=== PATIENT | male | born 1950 | race Caucasian/White ===

== ENCOUNTER 2018-04-05 11:04 | Inpatient (IN) | payer OTHER, MEDICAID ==
[~2018-04-05] VITALS: Ht 165.1 cm; Wt 47.8 kg
[2018-04-05 12:26] LABS: BASOPHIL % 0.5 % (0-2); PLATELET COUNT 187 x10^3mcL (130-400)
[2018-04-05 12:45] LABS: BILIRUBIN TOTAL 0.36 mg/dL (0.20-1.00); CALCIUM 8.5 mg/dL (8.5-10.1); CARBON DIOXIDE 28.2 mmol/L (21-32); POTASSIUM SERUM 3.7 mmol/L (3.5-5.1); TOTAL PROTEIN, SERUM 7.8 g/dL (6.4-8.2)
[2018-04-05 12:47] LABS: ALBUMIN 2.9 g/dL (3.4-5.0); CREATININE SERUM 6.5 mg/dL (0.7-1.3)
[2018-04-05] MEDS ORDERED: LISINOPRIL2.5 MG (14:12)
[2018-04-05] MEDS ORDERED: CARVEDILOL3.125 M1 (14:12)
[2018-04-05] MEDS ORDERED: RENVELA800 M1 (14:12)
[2018-04-05] MEDS ORDERED: PRO30 PO (14:13)
[2018-04-05] MEDS ORDERED: MAGNESIUM OXID400 MG (14:13)
[2018-04-05 15:36] LABS: MAGNESIUM 2.5 mg/dL (1.8-2.4); PHOSPHOROUS 6.4 mg/dL (2.5-4.9)
[2018-04-05 15:40] VITALS: BP 132/69; BP 132/691
[2018-04-05 15:46] LABS: FREE T4 1.41 ng/dL (0.76-1.46); FREE THYROXINE INDEX 3.2 ug/dL (1.4-4.5); T4(THYROXINE) 8.3 ug/dL (4.7-13.3)
[2018-04-05 16:15] LABS: T3 TOTAL 0.59 ng/mL
[2018-04-05 16:30] VITALS: BP 115/62
[2018-04-05 17:01] VITALS: BP 131/60
[2018-04-05 20:52] VITALS: BP 137/64
[2018-04-06 05:38] VITALS: BP 102/49
[2018-04-06 06:45] LABS: BASOPHIL % 0.3 % (0-2); PLATELET COUNT 169 x10^3mcL (130-400)
[2018-04-06 06:46] LABS: RED CELL DISTRIBUTION WIDTH 17.3 % (11.5-14.5)
[2018-04-06 06:52] LABS: CALCIUM 8.1 mg/dL (8.5-10.1); CARBON DIOXIDE 27.6 mmol/L (21-32)
[2018-04-06 06:56] LABS: CREATININE SERUM 7.4 mg/dL (0.7-1.3)
[2018-04-06 07:41] VITALS: BP 122/59
[2018-04-06] MEDS ORDERED: CARVEDILOL25 M1 PO (10:52)
[2018-04-06] MEDS ORDERED: RENVELA800 M1 PO (10:54)
[2018-04-06] MEDS ORDERED: ZESTRIL20 MG PO (10:57)
[2018-04-06] MEDS ORDERED: NEXIUM40 MG PO (10:57)
[2018-04-06] MEDS ORDERED: ADALAT CC30 MG PO (10:58)
[2018-04-06 11:47] VITALS: BP 125/55
[2018-04-06 18:40] VITALS: BP 104/53
[2018-04-06 20:44] VITALS: BP 113/64
[2018-04-07 05:09] VITALS: BP 116/60
[2018-04-07 07:20] LABS: BASOPHIL % 0.4 % (0-2); PLATELET COUNT 163 x10^3mcL (130-400)
[2018-04-07 07:21] LABS: RED CELL DISTRIBUTION WIDTH 17.1 % (11.5-14.5)
[2018-04-07 07:35] LABS: CARBON DIOXIDE 29.8 mmol/L (21-32); POTASSIUM SERUM 3.6 mmol/L (3.5-5.1)
[2018-04-07 07:42] LABS: CREATININE SERUM 4.9 mg/dL (0.7-1.3)
[2018-04-07 09:50] VITALS: BP 110/49
[2018-04-07 13:02] VITALS: BP 112/53
[2018-04-07 13:50] LABS: SOURCE FLUID PLEURAL
[2018-04-07 13:51] LABS: APPEARANCE FLUID CLEAR; COLOR FLUID PALE YELLOW
[2018-04-07 13:52] LABS: RBC FLUID 945 /cumm; WBC FLUID 1240 /cumm
[2018-04-07 14:45] LABS: LYMPHOCYTE FLUID 24 %; MONOCYTE FLUID 9 %
[2018-04-07 17:37] VITALS: BP 114/53
[2018-04-07 20:51] VITALS: BP 106/54
[2018-04-08 05:55] VITALS: BP 110/59
[2018-04-08 06:16] LABS: BASOPHIL % 0.4 % (0-2); PLATELET COUNT 165 x10^3mcL (130-400); RED CELL DISTRIBUTION WIDTH 17.2 % (11.5-14.5)
[2018-04-08 06:28] LABS: CALCIUM 8.2 mg/dL (8.5-10.1); CARBON DIOXIDE 29.4 mmol/L (21-32); POTASSIUM SERUM 3.8 mmol/L (3.5-5.1)
[2018-04-08 06:34] LABS: CREATININE SERUM 6.4 mg/dL (0.7-1.3)
[2018-04-08 08:10] VITALS: BP 110/59
[2018-04-08 08:50] VITALS: BP 101/48
[2018-04-08 11:28] VITALS: Ht 165.1 cm; Wt 47.8 kg
[2018-04-08 12:29] VITALS: BP 106/59
[2018-04-08 16:57] VITALS: BP 112/67
[2018-04-08 21:08] VITALS: BP 123/56
[2018-04-09 05:41] LABS: CALCIUM 7.8 mg/dL (8.5-10.1); POTASSIUM SERUM 3.6 mmol/L (3.5-5.1)
[2018-04-09 05:42] LABS: CREATININE SERUM 4.3 mg/dL (0.7-1.3)
[2018-04-09 07:09] LABS: BASOPHIL % 0.3 % (0-2); PLATELET COUNT 153 x10^3mcL (130-400); RED CELL DISTRIBUTION WIDTH 16.8 % (11.5-14.5)
[2018-04-09 08:59] VITALS: BP 106/55
[2018-04-09 13:16] VITALS: BP 121/64
[2018-04-09 17:03] VITALS: BP 144/70
[2018-04-09 20:57] VITALS: BP 113/57
[2018-04-10 05:21] VITALS: BP 118/63
[2018-04-10 09:03] VITALS: BP 125/59
[2018-04-10 13:38] VITALS: BP 114/64
[2018-04-10 16:52] VITALS: BP 156/71
[2018-04-10 20:47] VITALS: BP 128/71
[2018-04-11] VITALS (7 sets, daily range): BP systolic 121–164; BP diastolic 65–80
[2018-04-11 07:05] LABS: CARBON DIOXIDE 24.6 mmol/L (21-32); POTASSIUM SERUM 3.6 mmol/L (3.5-5.1)
[2018-04-11 07:26] LABS: BASOPHIL % 0.3 % (0-2); PLATELET COUNT 176 x10^3mcL (130-400)
[2018-04-11 07:27] LABS: RED CELL DISTRIBUTION WIDTH 16.5 % (11.5-14.5)
[2018-04-11 07:28] LABS: CREATININE SERUM 7.4 mg/dL (0.7-1.3)
[2018-04-12 05:25] VITALS: BP 144/74
[2018-04-12 06:55] LABS: BASOPHIL % 0.1 % (0-2); PLATELET COUNT 186 x10^3mcL (130-400)
[2018-04-12 06:57] LABS: RED CELL DISTRIBUTION WIDTH 16.8 % (11.5-14.5)
[2018-04-12 07:00] LABS: CALCIUM 7.9 mg/dL (8.5-10.1); CARBON DIOXIDE 26.6 mmol/L (21-32); POTASSIUM SERUM 3.7 mmol/L (3.5-5.1)
[2018-04-12 07:04] LABS: CREATININE SERUM 5.5 mg/dL (0.7-1.3)
[2018-04-12 09:38] VITALS: BP 123/68
[2018-04-12 13:38] VITALS: BP 130/64
[2018-04-12 13:49] VITALS: BP 130/64
[2018-04-12] MEDS ORDERED: AUGMENTIN 875-1 EACH PO (14:00)
== END 2018-04-12 15:20 | disposition home or self-care (01) | DRG 199 ==
LOC: ED 11:04 → DU 14:12
PROVIDERS: Internal Medicine; Specialist
PROC: 0W9900Z Drainage of Right Pleural Cavity with Drainage Device, Open Approach (ICD-10-PCS; 2018-04-05)
PROC: 0W9930Z Drainage of Right Pleural Cavity with Drainage Device, Percutaneous Approach (ICD-10-PCS; principal; 2018-04-07)
DX: S27.0XXA Traumatic pneumothorax, initial encounter (principal); N18.6 End stage renal disease; J18.9 Pneumonia, unspecified organism; J90 Pleural effusion, not elsewhere classified; I12.0 Hypertensive chronic kidney disease with stage 5 chronic kidney disease or end stage renal disease; E44.0 Moderate protein-calorie malnutrition; Z68.1 Body mass index [BMI] 19.9 or less, adult; I95.89 Other hypotension; E86.1 Hypovolemia; A08.4 Viral intestinal infection, unspecified; K21.9 Gastro-esophageal reflux disease without esophagitis; E11.22 Type 2 diabetes mellitus with diabetic chronic kidney disease; E11.65 Type 2 diabetes mellitus with hyperglycemia; D63.1 Anemia in chronic kidney disease; Z99.2 Dependence on renal dialysis; Z87.891 Personal history of nicotine dependence; W01.0XXA Fall on same level from slipping, tripping and stumbling without subsequent striking against object, initial encounter; Y92.002 Bathroom of unspecified non-institutional (private) residence as the place of occurrence of the external cause
CPT/HCPCS: 32551; 32555; 36600; 82962; 83880; 84439; 97110-GP; 97530-GP; J2001; J2543; J3490; J7030; J7040; J7050; J7620; Q0092